=== PATIENT | female | born 1975 | race Hispanic/Latino ===

== ENCOUNTER 2018-02-28 10:39 | Emergency (ER) | payer MEDICAID ==
[2018-02-28] MEDS ORDERED: IBUPROFEN 600 MG TABLET ONE (11:27)
[2018-02-28] MEDS ORDERED: DIAZEPAM 5 MG TABLET ONE (11:27)
== END 2018-02-28 12:40 | disposition home or self-care (01) ==
LOC: EDH 10:39
DX: G44.209 Tension-type headache, unspecified, not intractable (principal); I10 Essential (primary) hypertension; E11.9 Type 2 diabetes mellitus without complications; Z79.4 Long term (current) use of insulin; Z98.890 Other specified postprocedural states; Z90.710 Acquired absence of both cervix and uterus

== ENCOUNTER 2018-04-01 13:25 | Emergency (ER) | payer MEDICAID ==
[2018-04-01] MEDS ORDERED: ACETAMINOPHEN EXTRA STRENGTH 500 MG TABLET ONE (15:26)
== END 2018-04-01 15:35 | disposition home or self-care (01) ==
LOC: EDH 13:25
DX: S93.492A Sprain of other ligament of left ankle, initial encounter (principal); I10 Essential (primary) hypertension; E11.9 Type 2 diabetes mellitus without complications; Z79.4 Long term (current) use of insulin; Z88.0 Allergy status to penicillin; Z90.710 Acquired absence of both cervix and uterus; Z98.890 Other specified postprocedural states; W18.39XA Other fall on same level, initial encounter; Y93.01 Activity, walking, marching and hiking; Y92.009 Unspecified place in unspecified non-institutional (private) residence as the place of occurrence of the external cause; Y99.8 Other external cause status
CPT/HCPCS: 73610

== ENCOUNTER 2018-04-18 12:46 | Emergency (ER) | payer MEDICAID ==
[2018-04-18] MEDS ORDERED: HYDROCODONE/ACETAMINOPHEN 5/325 MG TAB ONE (15:01)
== END 2018-04-18 15:53 | disposition home or self-care (01) ==
LOC: EDH 12:46
DX: S93.401A Sprain of unspecified ligament of right ankle, initial encounter (principal); I10 Essential (primary) hypertension; E11.9 Type 2 diabetes mellitus without complications; Z79.4 Long term (current) use of insulin; Z88.0 Allergy status to penicillin; Z90.710 Acquired absence of both cervix and uterus; Z98.890 Other specified postprocedural states; X58.XXXA Exposure to other specified factors, initial encounter; Y93.89 Activity, other specified; Y92.009 Unspecified place in unspecified non-institutional (private) residence as the place of occurrence of the external cause; Y99.8 Other external cause status
CPT/HCPCS: 73610; 81025

== ENCOUNTER 2018-04-26 19:23 | Emergency (ER) | payer MEDICAID ==
[2018-04-26 20:00] LABS: BASOPHILS % (AUTO) 0.9 % (0.0-5.0); EOSINOPHILS % (AUTO) 1.6 % (0.0-8.0); HEMATOCRIT 40.8 % (36-48); LYMPHOCYTES % (AUTO) 36.7 % (21.0-51.0); MEAN CORPUSCULAR HEMOGLOBIN 28.9 pg (27.0-33.0); MEAN CORPUSCULAR HGB CONC 33.6 g/dL (32.0-36.0); MEAN CORPUSCULAR VOLUME 85.8 fL (79-99); MONOCYTES % (AUTO) 5.6 % (3.0-13.0); NEUTROPHILS % (AUTO) 55.2 % (40.0-77.0); PLATELET COUNT (AUTO) 335 K/uL (130-400); RED BLOOD CELL COUNT(AUTO) 4.75 MIL/uL (4.00-5.50); RED CELL DISTRIBUTION WIDTH 13.5 % (11.0-15.5); WHITE BLOOD COUNT (AUTO) 10.2 K/uL (4.8-10.8)
[2018-04-26 20:06] LABS: APPEARANCE,URINE CLOUDY (CLEAR); BILIRUBIN,URINE NEGATIVE (NEGATIVE); COLOR,URINE YELLOW (YELLOW); GLUCOSE, URINE (UA) NEGATIVE (NEGATIVE); KETONES,URINE 5 mg/dL (NEGATIVE); LEUKOCYTE ESTERASE ,URINE SMALL (NEGATIVE); NITRATE,URINE NEGATIVE (NEGATIVE); OCCULT BLOOD,URINE NEGATIVE (NEGATIVE); PROTEIN,URINE NEGATIVE (NEGATIVE)
[2018-04-26] MEDS ORDERED: SUCRALFATE 1 GM TABLET ONE (20:14)
[2018-04-26] MEDS ORDERED: FAMOTIDINE 20MG TAB 20 MG TAB ONE (20:14)
[2018-04-26 20:17] LABS: CREATININE 0.7 mg/dL (0.5-1.5); HCG,QUAL RESULT NEGATIVE (NEGATIVE); POTASSIUM 3.6 mmol/L (3.5-5.1)
[2018-04-26 20:24] LABS: ALBUMIN 3.4 g/dL (3.5-5.0); BILIRUBIN,TOTAL 0.5 mg/dL (0.2-1.0); TOTAL PROTEIN, SERUM 7.3 g/dL (6.0-8.3)
[2018-04-26 20:26] LABS: BACTERIA,URINE Few /HPF (None Seen); RBC,URINE 0-1 /HPF (0-1); SQUAMOUS EPITHELIAL CELL,UR Moderate /HPF (0-2); WBC,URINE 26-50 /HPF (0-1)
[2018-04-26] MEDS ORDERED: CEFTRIAXONE SODIUM 1 GM ONE (23:07)
[2018-04-26] MEDS ORDERED: LIDOCAINE HCL-MPF 1% 2ML VIAL ONE (23:07)
== END 2018-04-26 23:21 | disposition home or self-care (01) ==
LOC: EDH 19:23
DX: N39.0 Urinary tract infection, site not specified (principal); K76.0 Fatty (change of) liver, not elsewhere classified; M54.6 Pain in thoracic spine; E11.9 Type 2 diabetes mellitus without complications; I10 Essential (primary) hypertension; Z79.4 Long term (current) use of insulin; Z88.0 Allergy status to penicillin; Z90.710 Acquired absence of both cervix and uterus
CPT/HCPCS: 36415; 74176; 76856; 80053; 81001; 81025; 83690; 85025; 96372; 99284; J0696; J3490

== ENCOUNTER 2018-08-24 22:18 | Emergency (ER) | payer MEDICAID ==
[2018-08-24 23:00] LABS: BASOPHILS % (AUTO) 0.7 % (0.0-5.0); EOSINOPHILS % (AUTO) 1.6 % (0.0-8.0); HEMATOCRIT 40.2 % (36-48); LYMPHOCYTES % (AUTO) 29.7 % (21.0-51.0); MEAN CORPUSCULAR HEMOGLOBIN 29.3 pg (27.0-33.0); MEAN CORPUSCULAR VOLUME 83.6 fL (79-99); MONOCYTES % (AUTO) 7.9 % (3.0-13.0); NEUTROPHILS % (AUTO) 60.1 % (40.0-77.0); PLATELET COUNT (AUTO) 266 K/uL (130-400); RED CELL DISTRIBUTION WIDTH 13.5 % (11.0-15.5); WHITE BLOOD COUNT (AUTO) 10.1 K/uL (4.8-10.8)
[2018-08-24] MEDS ORDERED: ONDANSETRON HCL 4 MG/2 ML VIAL ONE (23:00)
[2018-08-24] MEDS ORDERED: SODIUM CHLORIDE 0.9% 1000ML 1,000 ML IV ONE (23:01)
[2018-08-24] MEDS ORDERED: MORPHINE SULFATE 4 MG/1ML SYG ONE (23:01)
[2018-08-24 23:05] LABS: APPEARANCE,URINE Cloudy (CLEAR); BILIRUBIN,URINE Small (NEGATIVE); COLOR,URINE Dark Yellow (YELLOW); GLUCOSE, URINE (UA) 250 mg/dL (NEGATIVE); KETONES,URINE Negative (NEGATIVE); LEUKOCYTE ESTERASE ,URINE Small (NEGATIVE); NITRATE,URINE Positive (NEGATIVE); OCCULT BLOOD,URINE Trace (NEGATIVE); PROTEIN,URINE Trace mg/dL (NEGATIVE)
[2018-08-24 23:07] LABS: HCG,QUAL RESULT NEGATIVE (NEGATIVE)
[2018-08-24 23:11] LABS: CREATININE 0.7 mg/dL (0.5-1.5); POTASSIUM 3.4 mmol/L (3.5-5.1)
[2018-08-24] MEDS ORDERED: IOHEXOL-350 75 ML VIAL IV ONE (23:14)
[2018-08-24 23:15] LABS: ALBUMIN 3.3 g/dL (3.5-5.0); BILIRUBIN,TOTAL 0.7 mg/dL (0.2-1.0); TOTAL PROTEIN, SERUM 7.2 g/dL (6.0-8.3)
[2018-08-24 23:28] LABS: BACTERIA,URINE Moderate /HPF (None Seen); MUCUS,URINE Moderate LPF (None Seen); SQUAMOUS EPITHELIAL CELL,UR Moderate /HPF (0-2); TRICHOMONAS,URINE Moderate /LPF (None Seen)
== END 2018-08-25 01:19 | disposition home or self-care (01) ==
LOC: EDH 22:18
DX: A59.03 Trichomonal cystitis and urethritis (principal); N39.0 Urinary tract infection, site not specified; R10.10 Upper abdominal pain, unspecified; I10 Essential (primary) hypertension; E11.9 Type 2 diabetes mellitus without complications; Z88.0 Allergy status to penicillin; Z90.49 Acquired absence of other specified parts of digestive tract; Z98.890 Other specified postprocedural states; Z90.710 Acquired absence of both cervix and uterus
CPT/HCPCS: 36415; 74177; 80053; 81001; 81025; 82550; 83690; 84484; 85025; 93005; 96374; 96375; 99285; J2270; J2405; J7030; Q9967

== ENCOUNTER 2018-09-25 03:23 | Emergency (ER) | payer MEDICAID ==
[2018-09-25 04:07] LABS: APPEARANCE,URINE Cloudy (CLEAR); BILIRUBIN,URINE Negative (NEGATIVE); COLOR,URINE Yellow (YELLOW); GLUCOSE, URINE (UA) 500 mg/dL (NEGATIVE); KETONES,URINE Negative (NEGATIVE); LEUKOCYTE ESTERASE ,URINE Small (NEGATIVE); NITRATE,URINE Negative (NEGATIVE); OCCULT BLOOD,URINE Negative (NEGATIVE); PROTEIN,URINE Negative (NEGATIVE)
[2018-09-25 04:07] LABS: BASOPHILS % (AUTO) 0.7 % (0.0-5.0); EOSINOPHILS % (AUTO) 3.6 % (0.0-8.0); HEMATOCRIT 38.7 % (36-48); LYMPHOCYTES % (AUTO) 48.1 % (21.0-51.0); MEAN CORPUSCULAR HEMOGLOBIN 29.2 pg (27.0-33.0); MEAN CORPUSCULAR HGB CONC 34.7 g/dL (32.0-36.0); MEAN CORPUSCULAR VOLUME 84.3 fL (79-99); MONOCYTES % (AUTO) 7.7 % (3.0-13.0); NEUTROPHILS % (AUTO) 39.9 % (40.0-77.0); NUCLEATED RED BLOOD CELLS 0.1 % (0.0-0.19); PLATELET COUNT (AUTO) 291 K/uL (130-400); RED CELL DISTRIBUTION WIDTH 13.9 % (11.0-15.5); WHITE BLOOD COUNT (AUTO) 7.8 K/uL (4.8-10.8)
[2018-09-25 04:13] LABS: CREATININE 0.7 mg/dL (0.5-1.5); POTASSIUM 3.4 mmol/L (3.5-5.1)
[2018-09-25 04:25] LABS: BACTERIA,URINE Rare /HPF (None Seen); SQUAMOUS EPITHELIAL CELL,UR Few /HPF (0-2)
== END 2018-09-25 04:50 | disposition home or self-care (01) ==
LOC: EDH 03:23
DX: F43.0 Acute stress reaction (principal); R07.89 Other chest pain; E11.9 Type 2 diabetes mellitus without complications; I10 Essential (primary) hypertension; Z90.49 Acquired absence of other specified parts of digestive tract; Z88.0 Allergy status to penicillin; Z79.4 Long term (current) use of insulin
CPT/HCPCS: 36415; 80048; 81001; 84484; 85025; 93005

== ENCOUNTER → 2021-04-11 | Outpatient (CLI) | payer MEDICAID ==
[2021-04-11 13:15] LABS: BASOPHILS % (AUTO) 0.8 % (0.0-5.0); HEMATOCRIT 40.1 % (36-48); LYMPHOCYTES % (AUTO) 28.6 % (21.0-51.0); MEAN CORPUSCULAR HEMOGLOBIN 28.2 pg (27.0-33.0); MEAN CORPUSCULAR HGB CONC 33.2 g/dL (32.0-36.0); MONOCYTES % (AUTO) 6.5 % (3.0-13.0); NEUTROPHILS % (AUTO) 61.4 % (40.0-77.0); PLATELET COUNT (AUTO) 332 K/uL (130-400); RED BLOOD CELL COUNT(AUTO) 4.72 MIL/uL (4.00-5.50); RED CELL DISTRIBUTION WIDTH 13.4 % (11.0-15.5); WHITE BLOOD COUNT (AUTO) 7.4 K/uL (4.8-10.8)
== END | disposition home or self-care (01) ==
LOC: LAB 04-10 07:58
PROVIDERS: ATTEND Internal Medicine Gastroenterology
DX: R10.32 Left lower quadrant pain (principal); R19.7 Diarrhea, unspecified
CPT/HCPCS: 36415; 85025

== ENCOUNTER 2023-08-12 07:02 | Day surgery (SDC) | payer MEDICAID ==
[2023-08-12] VITALS (13 sets, daily range): BP systolic 105–122; BP diastolic 62–75; PULSE 61–83; RESP 14–22
[~2023-08-12] VITALS: Ht 162.6 cm; Wt 96.6 kg
[~2023-08-12 07:02] MED LIST: SEMA2PEN SQ
[2023-08-12] MEDS: 0.9%NACL 1000ML 1,000 ML IV ONE (10:01)
[2023-08-12] MEDS ORDERED: PROPOFOL 10 MG/ML 20ML VIAL IV ONE ×2 (11:00)
[2023-08-12] MEDS: ONDANSETRON 4MG INJ ONE (12:07)
[2023-08-12] MEDS: DEXTROSE 50%-WATER 50 ML DISP.SYRIN IV ONE (12:08)
== END 2023-08-12 12:40 | disposition home or self-care (01) ==
LOC: DAH 07:02 → ENDO 07:02
PROVIDERS: ATTEND Internal Medicine Gastroenterology
DX: R10.13 Epigastric pain (principal); K29.70 Gastritis, unspecified, without bleeding; R11.2 Nausea with vomiting, unspecified; K21.9 Gastro-esophageal reflux disease without esophagitis; R19.7 Diarrhea, unspecified; K57.30 Diverticulosis of large intestine without perforation or abscess without bleeding; K57.93 Diverticulitis of intestine, part unspecified, without perforation or abscess with bleeding; K64.0 First degree hemorrhoids; E66.9 Obesity, unspecified; E11.9 Type 2 diabetes mellitus without complications; I10 Essential (primary) hypertension; F41.9 Anxiety disorder, unspecified; F32.A Depression, unspecified; J45.909 Unspecified asthma, uncomplicated; Z90.710 Acquired absence of both cervix and uterus; Z90.49 Acquired absence of other specified parts of digestive tract; Z98.890 Other specified postprocedural states; Z88.0 Allergy status to penicillin; Z98.84 Bariatric surgery status; Z68.38 Body mass index [BMI] 38.0-38.9, adult
CPT/HCPCS: 43239; 82948 ×3; J7030; J7070; J3490; J2405; A4620; A4215 ×2; A4223; A4222; A4221; A4663; J2704

== ENCOUNTER 2023-09-23 07:00 | Day surgery (SDC) | payer MEDICAID ==
[~2023-09-23] VITALS: Ht 162.6 cm; Wt 89.8 kg
[2023-09-23] VITALS (10 sets, daily range): BP systolic 94–129; BP diastolic 54–78; PULSE 60–78; RESP 14–18
[2023-09-23] MEDS: 0.9%NACL 1000ML 1,000 ML IV ONE (08:35)
[2023-09-23] MEDS ORDERED: PROPOFOL 10 MG/ML 20ML VIAL IV ONE (09:50)
== END 2023-09-23 11:00 | disposition home or self-care (01) ==
LOC: ENDO 07:00 → DAH 07:00 → ENDO 11:00
PROVIDERS: ATTEND Internal Medicine Gastroenterology
DX: K92.1 Melena (principal); Z80.0 Family history of malignant neoplasm of digestive organs; R10.13 Epigastric pain; R11.2 Nausea with vomiting, unspecified; B96.81 Helicobacter pylori [H. pylori] as the cause of diseases classified elsewhere; K57.93 Diverticulitis of intestine, part unspecified, without perforation or abscess with bleeding; R93.2 Abnormal findings on diagnostic imaging of liver and biliary tract; K76.0 Fatty (change of) liver, not elsewhere classified; K21.9 Gastro-esophageal reflux disease without esophagitis; E66.9 Obesity, unspecified; Z68.37 Body mass index [BMI] 37.0-37.9, adult; E11.9 Type 2 diabetes mellitus without complications; I10 Essential (primary) hypertension; F41.9 Anxiety disorder, unspecified; F32.A Depression, unspecified; J45.909 Unspecified asthma, uncomplicated; K59.04 Chronic idiopathic constipation; K64.0 First degree hemorrhoids; Z79.899 Other long term (current) drug therapy; Z90.49 Acquired absence of other specified parts of digestive tract; Z96.659 Presence of unspecified artificial knee joint; Z98.84 Bariatric surgery status; Z98.890 Other specified postprocedural states
CPT/HCPCS: 82948 ×2; 45378; J7030 ×2; J3490; A4620; A4215; A4223; A7002; A4222; A4221; A4663; A4606; G0105; J2704

== ENCOUNTER 2023-09-24 11:38 | Day surgery (SDC) | payer MEDICAID ==
[~2023-09-24] VITALS: Ht 162.6 cm; Wt 89.8 kg
[2023-09-24] VITALS (8 sets, daily range): BP systolic 98–126; BP diastolic 60–73; PULSE 65–78; RESP 15–18
[2023-09-24] MEDS ORDERED: PROPOFOL 10 MG/ML 20ML VIAL IV ONE (13:08)
[2023-09-24] MEDS ORDERED: LIDOCAINE PF 100MG/5ML (2%) SYRINGE 5ML ONE (13:08)
[2023-09-24] MEDS ORDERED: GLYCOPYRROLATE 0.2 MG/ML 5 ML VIAL ONE (13:09)
== END 2023-09-24 15:33 ==
LOC: ENDO 11:38 → DAH 11:38 → ENDO 15:33
PROVIDERS: ATTEND Internal Medicine Gastroenterology
DX: Z12.11 Encounter for screening for malignant neoplasm of colon (principal); K57.30 Diverticulosis of large intestine without perforation or abscess without bleeding; Z80.0 Family history of malignant neoplasm of digestive organs; J45.909 Unspecified asthma, uncomplicated; F32.A Depression, unspecified; K21.9 Gastro-esophageal reflux disease without esophagitis; K59.04 Chronic idiopathic constipation; K92.1 Melena; E66.9 Obesity, unspecified; I10 Essential (primary) hypertension; E11.9 Type 2 diabetes mellitus without complications; F41.9 Anxiety disorder, unspecified; Z90.710 Acquired absence of both cervix and uterus; K76.0 Fatty (change of) liver, not elsewhere classified; R93.2 Abnormal findings on diagnostic imaging of liver and biliary tract; Z98.84 Bariatric surgery status; Z68.37 Body mass index [BMI] 37.0-37.9, adult; Z79.899 Other long term (current) drug therapy
CPT/HCPCS: 45378; 82948 ×2; J3490 ×3; A4620; A4215 ×2; A4223; A4222; A4221; A4663; J7030; A4606; G0105; J2001; J2704

== ENCOUNTER 2024-07-23 20:51 | Emergency (ER) | payer MEDICAID ==
[~2024-07-23] VITALS: Ht 162.6 cm; Wt 103.4 kg
[~2024-07-23 20:51] MED LIST changes: +FAMO-136 PO; +ONDA-243 PO; -SEMA2PEN SQ; +SUCR1TAB28 PO
--- NOTE | 2024-07-23 21:39 | ERN ---
ED Note History of Present Illness Stated Complaint: EARACHE X 7 DAYS Chief Complaint: Earache Time Seen by MD: 21:37 Time Seen by Midlevel: 21:40 Dictation: Ms. Moya is a 49-year-old female with history of type 2 diabetes and obesity who presented to the emergency department this evening for evaluation of ear pain. She reports right ear pain x7 days. She has been seen by her PCP who prescribed otic drops as well as an urgent care. On Thursday, following urgent care visit, she was placed on amoxicillin. She states that the ear drops burn and cause more pain. States he has been no improvement of symptoms. She states that the pain is much worse with opening and closing of her mouth. The pain radiates to her jaw. She has had no otic drainage. There is no post auricular erythema. She denies dental pain/dental caries. She denies having fever, chills, shortness of breath, cough, chest pain, palpitations, abdominal pain, nausea, vomiting, diarrhea, dysuria, headache, or dizziness. Allergies: Coded Allergies: No Known Drug Allergies (Unverified Allergy, Unknown, 02/29/24) Penicillins (Unverified Allergy, Unknown, 08/25/18) Home Meds Active Scripts Ketorolac Tromethamine (Toradol) 10 Mg Tab, 1 TAB PO TID for pain for 5 Days, #15 TAB 0 Refills Prov:JEFRY VELEZ NP 07/23/24 Amoxicillin/Potassium Clav (Amox Tr-K Clv 875-125 mg Tab) 875 Mg-125 Mg Tablet, 1 TAB PO BID for 7 Days, #14 TAB 0 Refills Prov:JEFRY VELEZ NP 07/23/24 Ondansetron (Ondansetron Odt) 4 Mg Tab.rapdis, 4 MG PO ONCE PRN for NAUSEA, #30 TAB 0 Refills Prov:CHAMP RODRIGUEZ MD 07/18/23 Famotidine (Pepcid) 20 Mg Tablet, 20 MG PO DAILYDINNER, #15 TAB 0 Refills Prov:CHAMP RODRIGUEZ MD 07/18/23 Sucralfate (Carafate) 1 Gram Tablet, 1 GM PO QID, #40 TAB 0 Refills Prov:CHAMP RODRIGUEZ MD 07/18/23 Past Medical History Past Medical History: Diabetes-Type II Surgical History: Hysterectomy, Cholecystectomy, Other, Bariatric Surgery Surgical History Other: BILATERAL KNEE, BACK PSYCH History: no pertinent psych hx Social History: Negative, Lives with family History: Not Applicable RN Note Reviewed/Agreed w/PFSH: Yes Review of System Dictation REVIEW OF SYSTEMS: CONSTITUTIONAL: Patient denies fevers, chills, sweats and weight changes. EYES: Patient denies any visual symptoms. EARS, NOSE, AND THROAT: No difficulties with hearing. No symptoms of rhinitis or sore throat. Reports right ear pain radiating to right jaw. Denies ear drainag e. Denies dental pain/caries Reports pain with opening and closing of her mouth. States she is currently receiving treatment for an ear infection. CARDIOVASCULAR: Patient denies chest pains, palpitations, orthopnea and paroxysmal nocturnal dyspnea. RESPIRATORY: No dyspnea on exertion, no wheezing or cough. GI: No nausea, vomiting, diarrhea, constipation, abdominal pain, hematochezia or melena. : No urinary hesitancy or dribbling. No nocturia or urinary frequency. No abnormal urethral discharge. MUSCULOSKELETAL: No myalgias or arthralgias. NEUROLOGIC: No chronic headaches, no seizures. Patient denies numbness, tingling or weakness. PSYCHIATRIC: Patient denies problems with mood disturbance. No problems with anxiety. ENDOCRINE: No excessive urination or excessive thirst. DERMATOLOGIC: Patient denies any rashes or skin changes. Initial Vital Sign VS Vital Signs Date Time Temp Pulse Resp B/P (MAP) Pulse Ox O2 Delivery O2 Flow Rate FiO2 07/23/24 20:52 98.1 79 16 135/78 99 Room Air 07/23/24 20:58 0 21 Physical Exam Dictation Vital signs: Reviewed. Afebrile Constitutional: No acute distress. Non-toxic appearing. Head/Face: Normocephalic, atraumatic. Eyes: Periorbital areas with no swelling, redness, or edema. Lids and lashes are normal. Conjunctival injection is absent. Sclera anicteric. Pupils equal, round, reactive to light. ENT: Pinnas intact and no signs of trauma or erythema. No postauricular erythema. Ear canals clear and no discharge. Slight erythema of right ear canal. TMs pearly/copeland; no bulging. No nasal discharge or bleeding noted. Oropharynx with no exudate, redness, swelling, masses, exudates, or evidence of obstruction. Uvula midline. No dental caries or gum lesions/swelling. Mucous membranes moist. Speech is clear. Neck: Trachea midline, no masses palpated, and no cervical lymphadenopathy. No swelling. Supple, full range of motion. Chest/Axilla: No tenderness, no crepitus, no paradoxical movement, no retractions. Cardiovascular: Regular rate, regular rhythm, no murmur, no gallops. Symmetric pulses. No peripheral edema. Respiratory: Respirations even and unlabored. Lung sounds clear; no wheezes, rales or rhonchi. Gastrointestinal: Inspection is normal. No distention is appreciated. Bowel sounds are normal. No mass or organomegaly . There is no tenderness. No rebound. No rigidity. No voluntary or involuntary guarding. No Lawrence's sign. Neurological: Normal speech, gross motor function intact, gross sensory function intact. No focal weakness/Paresthesia. Musculoskeletal/Extremities: All extremities have full range of motion, no pain or tenderness on palpation. Symmetric pulses. Integumentary: Intact. Skin is normal color, warm and dry. Cap refill less than 2 seconds. ED Course ED Course Orders Procedure Category Date Status Time Hydrocodone/Apap PHA 07/23/24 Complete 5/325 ([place] 5/325mg) 22:00 Dexamethasone 4mg/Ml PHA 07/23/24 Complete 1ml Vial (Dexametha 22:00 Current Medications Medications (Trade) Dose Ordered Sig/Dejah Route PRN Reason Start Time Stop Time Status Last Admin Dose Admin Acetaminophen/ Hydrocodone Bitart (NORco 5/325MG) 1 tab ONCE ONCE PO 07/23/24 22:00 07/23/24 22:01 DC 07/23/24 21:42 Dexamethasone Sodium Phosphate (dexaMETHasone 4MG/ML 1ML VIAL) 10 mg ONCE ONCE IM 07/23/24 22:00 07/23/24 22:04 DC 07/23/24 22:10 Vital Signs Date Time Temp Pulse Resp B/P (MAP) Pulse Ox O2 Delivery O2 Flow Rate FiO2 07/23/24 21:55 98.1 76 16 136/76 100 Room Air* 0 21 07/23/24 20:58 98.1 78 16 135/78 100 Room Air* 0 21 07/23/24 20:52 98.1 79 16 135/78 99 Room Air Vital signs stable; remains afebrile. Initially rated pain 10/10 to the right ear as/jaw. Pain worsens with opening and closing of the mouth. There was no erythema surrounding the ear. There is no otic drainage. She received dose [place] as well as Decadron. Instructed her to discontinue the ear drops and amoxicillin. She will start course of Augmentin. I have instructed her to follow up with her PCP. Should symptoms persist she may benefit from referral to ENT. Medical Decision Making MDM MDM: Differential diagnosis: TMJ, otitis media, otitis externa, dental caries/infection Rationale: Tests considered and ordered secondary to shared decision making include: Examination Previous outside records reviewed: Old ER visits. Risk of complication and/or morbidity or mortality of patient management: None Medications-Per medication reconciliation Need for hospitalization: Patient does not meet criteria for hospitalization. Need for emergency major/minor surgery: No There are no social concerns with this patient. Prescription drug management: Augmentin, Toradol Prescriptions will include symptomatic care Patient's prior external medical records from other ER visits were reviewed by me as indicated. Prior testing and results from previous visits were reviewed. Prior tests were taken into account with medical decision making and resource utilization, independent historian/historians were used to obtain complete medical history. I independently interpreted the test that were performed, results were reviewed by me and considered findings on radiology if ordered. Medical management and examination interpretation discussions were had by me with other qualified healthcare professionals as indicated for the patient's care. DX & DISP Disposition: Discharge Departure Impression: Primary Impression: Ear pain, left Additional Impressions: Ear infection, TMJ arthralgia Condition: Stable Scripts Ketorolac Tromethamine (Toradol) 10 Mg Tab 1 TAB PO TID for pain for 5 Days, #15 TAB 0 Refills Prov: JEFRY VELEZ HE[employer] PLAN SPECIALIST 07/23/24 Amoxicillin/Potassium Clav (Amox Tr-K Clv 875-125 mg Tab) 875 Mg-125 Mg Tablet 1 TAB PO BID for 7 Days, #14 TAB 0 Refills Prov: JEFRY VELEZ HE[employer] PL[employer] SPECIALIST 07/23/24 Additional Instructions: Rest. Drink plenty of fluids. Stop otic drops and amoxicillin. You will start Augmentin twice daily for seven days. Start Toradol t.i.d. as needed for discomfort. Follow up early next week with your PCP. Should symptoms persist you may benefit from referral to a ENT. Return to the emergency department for any worsening of symptoms or concerns. Referrals: TRAY MORTENSEN (PCP) Time of Disposition: 22:14 JEFRY VELEZ NP July 23, 2024 21:39
[2024-07-23] MEDS: HYDROcodone/APAP 5/325 1 TAB TABLET PO ONE (21:42)
[2024-07-23 21:55] VITALS: BP 136/76; PULSE 76; RESP 16; TEMP 98; O2SAT 100
[2024-07-23] MEDS: dexaMETHasone SOD PHOSPHATE 4 MG/ML 1ML VIAL IM ONE (22:10)
[2024-07-23] MEDS ORDERED: KETO10 PO (22:13)
[2024-07-23] MEDS ORDERED: AMOX1TAB16 PO (22:13)
== END 2024-07-23 22:20 | disposition home or self-care (01) ==
LOC: EDH 20:51
DX: H92.02 Otalgia, left ear (principal); H66.92 Otitis media, unspecified, left ear; M26.622 Arthralgia of left temporomandibular joint; E11.9 Type 2 diabetes mellitus without complications; Z79.1 Long term (current) use of non-steroidal anti-inflammatories (NSAID); Z88.0 Allergy status to penicillin; Z90.49 Acquired absence of other specified parts of digestive tract; Z90.710 Acquired absence of both cervix and uterus
CPT/HCPCS: 99283; 96372; J1100

== ENCOUNTER 2024-07-26 02:43 | Emergency (ER) | payer MEDICAID ==
[~2024-07-26] VITALS: Ht 162.6 cm; Wt 104.8 kg
[~2024-07-26 02:43] MED LIST changes: +AMOX1TAB16 PO; +KETO10 PO
--- NOTE | 2024-07-26 03:46 | ERN ---
General Chief Complaint: Earache Stated Complaint: C/O RT EAR PAIN Time Seen by MD: 03:13 History of Present Illness Initial Comments 49-year-old female with right ear pain that has been going on for the last six to 7 hours. She has not been able to sleep. The area is warm to the touch. No other symptoms no upper respiratory tract infection no chest pain no shortness of breath no nausea vomiting or diarrhea. Allergies: Coded Allergies: No Known Drug Allergies (Unverified Allergy, Unknown, 02/29/24) Penicillins (Unverified Allergy, Unknown, 08/25/18) Home Meds Active Scripts Ketorolac Tromethamine (Toradol) 10 Mg Tab, 1 TAB PO TID for pain for 5 Days, #15 TAB 0 Refills Prov:JEFRY VELEZ NP 07/23/24 Amoxicillin/Potassium Clav (Amox Tr-K Clv 875-125 mg Tab) 875 Mg-125 Mg Tablet, 1 TAB PO BID for 7 Days, #14 TAB 0 Refills Prov:JEFRY VELEZ NP 07/23/24 Ondansetron (Ondansetron Odt) 4 Mg Tab.rapdis, 4 MG PO ONCE PRN for NAUSEA, #30 TAB 0 Refills Prov:CHAMP RODRIGUEZ MD 07/18/23 Famotidine (Pepcid) 20 Mg Tablet, 20 MG PO DAILYDINNER, #15 TAB 0 Refills Prov:CHAMP RODRIGUEZ MD 07/18/23 Sucralfate (Carafate) 1 Gram Tablet, 1 GM PO QID, #40 TAB 0 Refills Prov:CHAMP RODRIGUEZ MD 07/18/23 Past Medical History Past Medical History: Diabetes-Type II Past Surgical History: Cholecystectomy, Other Surgical History Other: GASTRIC SLEEVE Social History Social History: Negative, Lives with family Female( History) History: Not Applicable Constitutional: (-) chills, (-) diaphoresis, (-) fever, (-) malaise, (-) weakness, (-) other documentation EENTM: (-) eye pain, (-) blurred vision, (-) tearing, (-) double vision, (-) ear pain, (-) ear discharge, (-) nose pain, (-) nose congestion, (-) throat pain, (-) Throat swelling, (-) mouth pain, (-) tooth pain, (-) mouth swelling, (-) other documentation Respiratory: (-) cough, (-) orthopnea, (-) short of breath, (-) stridor, (-) wheezing, (-) other documentation Cardiovascular: (-) chest pain, (-) edema, (-) palpitations, (-) syncope, (-) dyspnea on exertion, (-) other documentation Gastrointestinal/Abdominal: (-) nausea, (-) vomiting, (-) diarrhea, (-) abdominal pain, (-) abdominal distention, (-) constipation, (-) rectal bleeding, (-) dark stool/melena, (-) other documentation Musculoskeletal: (-) Neck pain, (-) back pain, (-) Flank Pain, (-) joint pain, (-) joint swelling, (-) muscle pain, (-) muscle stiffness, (-) gout, (-) other documentation Skin: (-) laceration, (-) contusion, (-) abrasion, (-) abscess, (-) rash, (-) change in color, (-) change in hair, (-) change in nails, (-) diaphoresis, (-) dryness, (-) other documentation Physical Exam General Appearance: (+) moderate distress Orientation: (+) alert, (+) oriented x 3 Head/Face Trauma: No Eye: bilateral eye normal inspection, bilateral eye PERRL, bilateral eye EOMI Ear, Nose, Throat: (+) hearing grossly normal Ear, Nose, Throat Comment The right external ear canal appeared a little erythematous I could get a glimpse of the tympanic membrane there was a lot of cerumen in the ear canal. Neck: (+) normal inspection, (+) supple Respiratory: (+) chest non-tender, (+) lungs clear Heart: (+) regular, (+) no gallop Results Laboratory and Microbiology Lab and Micro Result Laboratory Tests Test 07/26/24 04:09 White Blood Count 9.4 K/uL (4.8-10.8) Red Blood Count 4.69 MIL/uL (4.00-5.50) Hemoglobin 13.5 g/dL (12.0-16.0) Hematocrit 40.2 % (36-48) Mean Corpuscular Volume 85.7 fL (79-99) Mean Corpuscular Hemoglobin 28.8 pg (27.0-33.0) Mean Corpuscular Hemoglobin Concent 33.6 g/dL (32.0-36.0) Red Cell Distribution Width 14.0 % (11.0-15.5) Platelet Count 310 K/uL (130-400) Mean Platelet Volume 9.5 fL (7.5-10.5) Immature Granulocyte % (Auto) 0.5 % (0-1) Neutrophils (%) (Auto) 47.2 % (40.0-77.0) Lymphocytes (%) (Auto) 43.3 % (21.0-51.0) Monocytes (%) (Auto) 6.8 % (3.0-13.0) Eosinophils (%) (Auto) 1.5 % (0.0-8.0) Basophils (%) (Auto) 0.7 % (0.0-5.0) Neutrophils # (Auto) 4.4 K/uL (1.8-7.7) Lymphocytes # (Auto) 4.1 K/uL (1.0-4.8) Monocytes # (Auto) 0.6 K/uL (0.1-1.0) Eosinophils # (Auto) 0.14 K/uL (0.00-0.70) Basophils # (Auto) 0.07 K/uL (0.00-0.20) Absolute Immature Granulocyte (auto 0.05 K/uL (0-1) Nucleated Red Blood Cells 0.0 % (0.0-0.19) Sodium Level 142 mmol/L (136-145) Potassium Level 4.1 mmol/L (3.5-5.1) Chloride Level 105 mmol/L (101-111) Carbon Dioxide Level 32 mmol/L (21-32) Blood Urea Nitrogen 26 mg/dL (7-18) H Creatinine 0.8 mg/dL (0.5-1.0) Glomerular Filtration Rate Calc 89 mL/min (>90) Random Glucose 113 mg/dL (70-105) H Total Calcium 9.1 mg/dL (8.5-10.1) Procalcitonin < 0.05 ng/mL (0.05-0.5) L Labs Reviewed?: Yes MDM I will give the patient some fluids some pain medicine and some Gram-positive antibiotic coverage. I will also order the usual labs. Patient feels better with the fluids and the ketorolac. Surprisingly the procalcitonin was less than 0.05 and her CBC did not contain a elevated neutrophil count. Patient's chemistry panel was normal. However I feel strongly enough based on my physical exam that the patient has otitis externa. Looking through of the patient's prior hospital visits I discovered that she was seen two days prior and given Augmentin. Patient states that she has been taking the Augmentin but it has not been helping. The Augmentin should cover bacterial causes for a tightness externa but not fungal causes so I will write for a prescription for Diflucan. Patient tells me she has an appointment with a an ENT physician in the morning he will be able to give her a more thorough diagnosis and additional pain medications as needed. ED Course Orders Procedure Category Date Status Time Cbc With Differential LAB 07/26/24 Complete 03:47 Basic Metabolic Panel LAB 07/26/24 Complete 03:47 Procalcitonin LAB 07/26/24 Complete 03:47 Lactated Ringers PHA 07/26/24 Complete 1000ml (Lactated 03:47 Ketorolac PHA 07/26/24 Complete Tromethamine 30mg/Ml 04:00 Clindamycin Ivpb PHA 07/26/24 Complete 900mg/50ml (Cleocin 03:47 Current Medications Medications (Trade) Dose Ordered Sig/Dejah Route PRN Reason Start Time Stop Time Status Last Admin Dose Admin Clindamycin HCl/ Dextrose (Cleocin Ivpb 900mg) 900 mg ONCE STAT IV 07/26/24 03:47 07/26/24 03:51 DC 07/26/24 03:58 Ketorolac Tromethamine (toRADol) 30 mg ONCE ONCE IVP 07/26/24 04:00 07/26/24 04:01 DC 07/26/24 03:58 Lactated Ringer's (Lactated Ringers 1000ml) 1,000 ml BOLUS STAT IV 07/26/24 03:47 07/26/24 03:50 DC 07/26/24 03:58 Vital Signs Date Time Temp Pulse Resp B/P (MAP) Pulse Ox O2 Delivery O2 Flow Rate FiO2 07/26/24 02:44 97.2 62 20 105/63 100 Room Air DX & DISP Disposition: Discharge Departure Impression: Primary Impression: Ear infection Condition: Stable Scripts Ketorolac Tromethamine (Toradol) 10 Mg Tab 1 TAB PO Q6HPRN PRN for pain for 5 Days, #20 TAB 0 Refills Prov: PEGGY ELLIS MD 07/26/24 Fluconazole (Diflucan) 200 Mg Tablet 1 TAB PO DAILY for 7 Days, #7 TAB 0 Refills Prov: PEGGY ELLIS MD 07/26/24 Referrals: TRAY MORTENSEN (PCP) PEGGY ELLIS MD July 26, 2024 03:46
[2024-07-26] MEDS: CLINDAMYCIN IVPB 900MG/50ML IV STA (03:58)
[2024-07-26] MEDS: ketOROlac 30MG VIAL (30MG/ML) IVP ONE (03:58)
[2024-07-26] MEDS: LACTATED RINGERS 1000ML IV STA (03:58)
[2024-07-26 04:20] LABS: BASOPHILS # (AUTO) 0.07 K/uL (0.00-0.20); BASOPHILS % (AUTO) 0.7 % (0.0-5.0); EOSINOPHILS # (AUTO) 0.14 K/uL (0.00-0.70); EOSINOPHILS % (AUTO) 1.5 % (0.0-8.0); HEMATOCRIT 40.2 % (36-48); IMMATURE GRANULOCYTE ABSOLUTE 0.05 K/uL (0-1); LYMPHOCYTES # (AUTO) 4.1 K/uL (1.0-4.8); LYMPHOCYTES % (AUTO) 43.3 % (21.0-51.0); MEAN CORPUSCULAR HEMOGLOBIN 28.8 pg (27.0-33.0); MEAN CORPUSCULAR HGB CONC 33.6 g/dL (32.0-36.0); MEAN CORPUSCULAR VOLUME 85.7 fL (79-99); MONOCYTES # (AUTO) 0.6 K/uL (0.1-1.0); MONOCYTES % (AUTO) 6.8 % (3.0-13.0); NEUTROPHILS # (AUTO) 4.4 K/uL (1.8-7.7); NEUTROPHILS % (AUTO) 47.2 % (40.0-77.0); PLATELET COUNT (AUTO) 310 K/uL (130-400); RED BLOOD CELL COUNT(AUTO) 4.69 MIL/uL (4.00-5.50); WHITE BLOOD COUNT (AUTO) 9.4 K/uL (4.8-10.8)
[2024-07-26 04:34] LABS: CREATININE 0.8 mg/dL (0.5-1.0); POTASSIUM 4.1 mmol/L (3.5-5.1)
[2024-07-26] MEDS ORDERED: FLUC200T PO (05:54)
[2024-07-26] MEDS ORDERED: KETO10 PO (05:55)
[2024-07-26 06:15] VITALS: BP 123/70; PULSE 65; RESP 18; TEMP 98.2; O2SAT 99
== END 2024-07-26 06:08 | disposition home or self-care (01) ==
LOC: EDH 02:43
DX: H66.91 Otitis media, unspecified, right ear (principal); E11.9 Type 2 diabetes mellitus without complications; Z79.1 Long term (current) use of non-steroidal anti-inflammatories (NSAID); Z88.0 Allergy status to penicillin; Z90.49 Acquired absence of other specified parts of digestive tract
CPT/HCPCS: 99284; 96374; 96375; 80048; 85025; 36415; 84145; J1885; J7120; J3490